=== PATIENT | female | born 1950 | race Caucasian/White ===

== ENCOUNTER 2025-02-11 13:02 | Outpatient (CLI) | payer MEDICARE, OTHER, SELFPAY ==
--- OUTSIDE RECORDS SUMMARY | 2018-08-27 23:00 | XMS_ITS | Encounter Summary ---
Author Organization [facility] Healthcare Address [address] [place] [address] Care Team Providers Care [employer] Name Role Phone Seema Ayon MD Primary Care Provider [phone] Encounter Details Date Type Department Care Team (Late st Contact Info) Description 08/28/2018 Hospital Encounter [facility] [address] [place] [address] Social History Tobacco Use Types Packs/Day Years Used Date Smoking Tobacco: Former Cigarettes 0.8 1.6 Q uit: 1986 Smokeless Tobacco: Never Comments:BALANCE ISSUES ARE A PROBLEM. I have not seen a NEUROLOGIST as of yet. I had a Oct 10 in [place] and had to cx Oct 09 appt. Now in FEBRUARY. Perhaps there is a Neurologist you recommend I can see sooner. 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 There will be no report generated by a [facility] Radiologist. Narrative [facility] - 05/12/2022 2:42 PM CDT EXAMINATION: Images For Reference Purposes Only Jm Hook MD IMG CT PROCEDURES Parvin l Result [facility] documented in this encounter Visit Diagnoses Not on filedocumented in this encounter Care Teams [employer] Teacher Relationship Specialty Start Date End Date Seema Ayon MD PCP - General 12/07/10 11/02/20 documented as of this encounter
--- NOTE | ~2025-02-11 | DEXA_ITS ---
Bone Density Report Name: AMOS LUJAN Age: 74 Sex: Female Ethnicity: White Date of : 1950 Indication: postmenopausal; screening for osteoporosis; prior fracture; Referring Provider: NATACHA, IRIS Miguel Study: Bone densitometry was performed. Exam Date: February 11, 2025 Accession number: [id number] Bone Density: Region BMD T-score Z-score Classification AP Spine(L1-L4) 1.066 0.2 2.5 Normal Femoral Neck (Left) 0.713 -1.2 0.8 Osteopenia Total Hip (Left) 0.872 -0.6 1.1 Normal Femoral Neck (Right) 0.726 -1.1 0.9 Osteopenia Total Hip (Right) 0.863 -0.6 1.1 Normal Total Hip Mean 0.867 -0.6 1.1 Normal World Health Organization criteria for BMD impression classify patients as: Normal (T-score at or above -1.0), Osteopenia (T-score between -1.0 and -2.5), or Osteoporosis (T-score at or below -2.5). 10-year Fracture Risk(1): Major Osteoporotic Fracture 16% Hip Fracture 2.3% Reported Risk Factors: [place] (), Neck BMD=0.713, BMI=27.4, previous fracture (1) FRAX(R) Version 3.08. Fracture probability calculated for an untreated patient. Fracture probability may be lower if the patient has received treatment. Clinical Information Provided by Patient: Has had a low trauma fracture Has used the following medications: Vitamin D Patient maximum height was 66.0 Menopause Age: 54 Drinks caffeinated beverages Onset of menses at age 16 Number of children 2 Impression: The patient has low bone mass, based on the Left Femoral Neck T-score. The patient has an estimated ten-year risk of hip fracture of 2.3% and an estimated ten-year risk of major fracture of 16%, based on the WHO FRAX algorithm. The patient has risk factors, including: previous fracture. Discussion: BONE DENSITY IS LOW AT ONE OR MORE SKELETAL SITES. This patient's lowest T-score is low at one or more skeletal sites. It meets the World Health Organization's (WHO) criteria for ?low bone mass? (T-score between -1.0 and -2.5). The patient's 10-year risk of fracture as calculated by FRAX is less than the threshold where pharmacological therapy is recommended by the National Osteoporosis Foundation (NOF). However, all treatment decisions require clinical judgment and consideration of individual patient factors, including patient preferences, comorbidities, previous drug use, risk factors not captured in the FRAX model (e.g., frailty, falls, vitamin D deficiency, increased bone turnover, interval significant decline in bone density) and possible under or overestimation of fracture risk by FRAX. The patient should follow a healthful lifestyle (good nutrition with adequate calcium and vitamin D, and appropriate weight-bearing exercise). Follow-Up: Consider repeating this study in 2 to 3 years to reassess this patient's status, or sooner if there is some new clinical indication. Reported by: ANAHY on 02/11/2025 1:51:00 PM. Reviewed, dictated and finalized at location A.
--- OUTSIDE RECORDS SUMMARY | 2025-02-11 13:27 | XMS_ITS | Clinical Summary ---
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 Gender Identity Not on file Sexual Orientation Not on file Plan of Treatment Health Maintenance Due Date Last Done Comments DTAP/TDAP/TD VACCINES (1 - Tdap) 1970 BREAST CANCER SCREENING 1991 COLORECTAL SCREENING 1996 Colorectal Cancer Screening 1996 FIT-DNA Q 3 years 1996 FIT/FOBT Q 1 year 1996 Flex Sig/CT Colonography Q 5 years 1996 PNEUMOCOCCAL VACCINE 50+ YEARS (1 of 1 - PCV) 03/24/19 02 ZOSTER VACCINE (1 of 2) 2001 OSTEOPOROSIS SCREENING 2016 INFLUENZA VACCINE (#1) 2024 RSV VACCINE (60+ or ) (1 - 1-dose 75+ series) 2026 Care Teams Chief Of Anesthesiology Relationship Specialty Start Date End Date Brayden Reynolds MD [address] [place] [address] PCP - General 08/09/02
--- OUTSIDE RECORDS SUMMARY | 2025-02-11 13:27 | XMS_ITS | Data Portability ---
Author Organization [place] - [facility] [employer], Main Office Address [address] [place] [address] Care Team Providers Care T Rail Turner Name Role Phone CHARLENE HOROWITZ Primary Care Provider [phone] CHARLENE HOROWITZ Referring Provider [phone] Assessment No assessment recorded. Plan of Treatment Reminders Order Date Submit Date Provider Last Modified By Organization Details Last Modified Time Details Appointments None recorded. Lab noninvasive colorectal cancer DNA + occult blood screening, QL, stool 2022 023 [facility], [address], [address], [place], [address], 3 18:33:24 Referral None recorded. Procedures None recorded. Surgeries None recorded. Imaging MAMMO, screening, digital, bilateral 2022 023 BRIAN Not available 3 12:26:00 DEXA 2022 023 [email or web address] Not available 3 12:29:53 Medication Orders OneTouch Verio test strips 2022 023 [id number], [address], [place], [address], 3 14:35:01 Synthroid 50 mcg tablet 2022 023 [id number] [facility], [address] , [place], [address], 3 14:35:02 Patient TargetsNo targets recorded. Patient Instructions Encounter Date Encounter Id Patient Instructions Last Modified By Organization Details Last Modified Time 10/10/2022 [id number] dementia rating scale-2* [email or web address] Not available 10/10/2022 15:44:04 multi-dimensiona l health assessment questionnaire* Not available 10/10/2022 15:44:09 care plan* [email or web address] Not available 09/14 15:44:00 advance directiv es: care instructions Not available 10/10/2022 14:34:55 advance care planning: care instructions Not available 10/10/2022 14:34:55 [place] Advance Directives Not available 10/10/2022 14:34:55 Personalized a lt Plan and Screening Recommendations Advance Directives - Do you have one? Yes Advance Directives - Do we have your advance directive on file in your health record? No, please bring in a copy at your earliest convenience Primary Prevention/Interven tion (prevents or decreases the chance of common diseases from occurring) Smoking Risk: Non Smoker Alcohol Misuse Screening: Negative Weight: Appropriate Physical activity: Need more exercise/physical activity minimum of 10-20 minutes of activity that causes mild breathlessness/day Nutrition: Good Fall Risk (screened today): Low Vaccines Pneumococcal: Recommended today Influenza: Your next one in the fall of this year Chronic Disease Risks Stroke: Intermediate Risk Active diagnosis, Continue current treatment plan Heart Attack: Intermediate Risk Active diagnosis, Continue current treatment plan Clogging of the Arteries: Intermediate Risk Active diagnosis, Continue current treatment plan Diabetes: High Risk Active diagnosis, Continue current treatment plan Secondary Prevention/Interven tion (detects treatable diseases before they may cause symptoms, disability, or ) Breast Cancer Screening with mammogram: Ordered Cervical/Uterine/Ov liliana Cancer Screening: Your next PAP/pelvic in: 11/2021 Osteoporosis Screening: Ordered Date Screening Last Performed: Colon Cancer Screening: Cologuard (DNA stool test) Ordered Date Screening Last Performed: Eye Disease Screening: Ordered Dementia Risk: Low Depression Screening: Negative Active diagnosis, Continue current treatment plan Not available 10/11/2022 20:39:48 Reason for Referral None Reported. Results Created Date Observation Date Name Description Value Unit Range Abnormal Flag Note LastModifiedBy Organization Detail LastModifiedTime 03/23/19 22 2021 HEMOG LOBIN A1C hemoglobin A1C 6.5 %_of_ total _HGB <5.7 high Not Available [address] [address] [place], [address], 2021 03:47:16 03/23/19 22 2021 BASIC METAB OLIC PANEL eGFR non-afr. russian 78 mL/mi n/1.7 3m2 > or = 60 normal Not Available [facility] [address] [address] [place], [address], 2021 03:47:15 03/23/1903/24/2021 BASIC METAB OLIC PANEL glucose 135 mg/dL 65-99 high Fasti ng refer ence inter stacy For someo ne witho ut known diabe caleb, a gluco se value >125 mg/dL indic ates that they may have diabe caleb and this shoul d be confi rmed with a follo w-up test. Not Available [facility] [address], [place], [address], 2021 03:47:15 03/23/19 22 2021 BASIC METAB OLIC PANEL urea nitrogen (BUN) 13 mg/dL 7-25 normal Not Available [facility] [address], [address], 2021 03:47:15 03/23/1903/24/2021 BASIC METAB OLIC PANEL creatinine 0.77 mg/dL 0.60-0 .93 normal For patie nts >49 years of age, the refer ence limit for Creat inine is appro ximat adria 13% highe r for peopl e ident ified as Afric an-Am philly n. Not Available [facility] [address] [address] [place], [address], 2021 03:47:15 03/23/19 22 2021 BASIC METAB OLIC PANEL eGFR 91 mL/mi n/1.7 3m2 > or = 60 normal Not Available [address], [address], 2021 03:47:15 03/23/19 22 2021 BASIC METAB OLIC PANEL BUN/creatini ne ratio not applic able (calc ) 6-22 Not Available [address], [address], 2021 03:47:15 03/23/19 22 2021 BASIC METAB OLIC PANEL sodium 139 mmol/ L 135-14 6 normal Not Available [address], [address], 2021 03:47:15 03/23/19 22 2021 BASIC METAB OLIC PANEL potassium 4.1 mmol/ L 3.5-5. 3 normal Not Available [address], [address], 2021 03:47:15 03/23/19 22 2021 BASIC METAB OLIC PANEL chloride 102 mmol/ L 98-110 normal Not Available [address], [address], 2021 03:47:15 03/23/19 22 2021 BASIC METAB OLIC PANEL carbon dioxide 30 mmol/ L 20-32 normal Not Available [address], [address], 2021 03:47:15 03/23/19 22 2021 BASIC METAB OLIC PANEL calcium 9.9 mg/dL 8.6-10 .4 normal Not Available [address], [address], 2021 03:47:15 03/23/19 22 2021 LIPID PANEL WITH RATIO S cholesterol, total 212 mg/dL <200 high Not Available [address] [address] [place], [address], 2021 03:47:15 03/23/19 22 2021 LIPID PANEL WITH RATIO S HDL cholesterol 51 mg/dL > or = 50 normal Not Available [facility] [address] [address] [place], [address], 2021 03:47:15 03/23/19 22 2021 LIPID PANEL WITH RATIO S triglyceride s 175 mg/dL <150 high Not Available [facility] [address], [address], 2021 03:47:15 03/23/19 22 2021 LIPID PANEL WITH RATIO S LDL-choleste rol 130 mg/dL _(yonas c) high Refer ence range : <100 Tatianna able range <100 mg/dL for prima ry preve ntion ; <70 mg/dL for patie nts with CHD or diabe tic patie nts with > or = 2 CHD risk facto rs. LDL-C is now calcu lated using the Christina n-Hop kins calcu alec n, which is a valid ated novel metho d provi ding anthony r accur acy than the Fried kaleb equat ion in the estim ation of LDL-C . Christina spears SS et al. HEBERT. 2013; 310(1 9): 2061- 2068 (http ://ed ucati on.Qu Ricarda [place] [employer] [employer]. com/f aq/FA Q164) Not Available [facility] [address] [address] [place], [address], 2021 03:47:15 03/23/19 22 2021 LIPID PANEL WITH RATIO S chol/HDLC ratio 4.2 (calc ) <5.0 normal Not Available [facility] [address] [address] [place], [address], 2021 03:47:15 03/23/19 22 2021 LIPID PANEL WITH RATIO S LDL/HDL ratio 2.5 (calc ) Below avera ge Risk: <2.34 [place] ge Risk: 2.35- 4.12 Moder ate Risk: 4.13- 5.56 High Risk: >5.57 Not Available [address] [address] [place], [address], 2021 03:47:15 03/23/19 22 2021 LIPID PANEL WITH RATIO S non HDL cholesterol 161 mg/dL _(yonas c) <130 high For patie nts with diabe caleb plus 1 major ASCVD risk facto r, treat ing to a non-H DL-C goal of <100 mg/dL (LDL- C of <70 mg/dL ) is consi dered a thera peuti c optio n. Not Available [address], [address], 2021 03:47:15 03/23/19 22 2021 TSH+F REE T4 TSH 1.80 mIU/L 0.40-4 .50 normal Not Available [address], [address], 2021 03:47:14 03/23/19 22 2021 TSH+F REE T4 T4, free 1.4 NG/dL 0.8-1. 8 normal Not Available [address], [address], 2021 03:47:14 08/03/19 22 08/04/2021 HEMOG LOBIN A1C hemoglobin A1C 6.0 %_of_ total _HGB <5.7 high For someo ne witho ut known diabe caleb, a hemog lobin A1c value betwe en 5.7% and 6.4% is consi stent with predi abete s and anni d james confi rmed with a follo w-up test. For someo ne with known diabe caleb, a value <7% indic ates that their diabe caleb is well contr olled . A1c targe ts shoul d be indiv idual ized based on durat ion of diabe caleb, age, comor bid condi tions , and other consi derat ions. This assay resul t is consi stent with an incre ased risk of diabe caleb. Curre ntly, no conse nsus exist s keven smion use of hemog lobin A1c for diagn osis of diabe caleb for child maribel. Not Available [facility] [address] [address] [place], [address], 08/04/2021 15:17:39 08/03/19 22 08/04/2021 TSH+F REE T4 TSH 0.91 mIU/L 0.40-4 .50 normal Not Available [facility] [address] [address] [place], [address], 08/04/2021 15:17:38 08/03/19 22 08/04/2021 TSH+F REE T4 T4, free 1.4 NG/dL 0.8-1. 8 normal Not Available [facility] [address] [address] [place], [address], 08/04/2021 15:17:38 08/03/19 22 08/04/2021 VITAM IN D,25- OH,TO CRISTOBAL,I A vitamin D,25-oh,tota l,ia 30 NG/mL 30-100 normal Vitam in D Statu s 25-OH Vitam in D: Defic iency : <20 ng/mL Insuf ficie ncy: 20 - 29 ng/mL Optim al: > or = 30 ng/mL For 25-OH Vitam in D testi ng on patie nts on D2-foster pplem entat ion and patie nts for whom quant itati on of D2 and D3 fract ions is requi red, the [facility] eD(TM ) 25-OH VIT D, (D2,D 3), LC/MS /MS is recom corine d: order code 23704 (abad ents >2yrs ). See Note 1 Note 1 For addit ional infor farhana saenz e refer to http: //[facility] gopal Wasserman gnost ics.c om/fa q/FAQ 199 (This link is being provi ded for infor carlos verma/ educrachael saucedo purpo ses only. ) Not Available [facility] [address] [address] [place], [address], 08/04/2021 15:17:38 08/03/19 22 08/04/2021 T3, FREE T3, free 3.4 pg/mL 2.3-4. 2 normal Not Available [facility] [address] [address] [place], [address], 08/04/2021 15:17:37 08/03/19 22 08/04/2021 INSUL IN insulin 7.9 uIU/m L normal Refer ence Range < or = 19.6 Risk: Optim al < or = 19.6 Moder ate NA High >19.6 Adult cardi ovasc ular event risk categ ory cut point s (opti mal, moder ate, high) are based on [facility] s popul ation data from 02/01 11. This insul in assay shows stron g cross -reac tivit y for some insul in analo gs (lisp ro, aspar t, and glarg ine) and much lower cross -reac tivit y with other s (dete jr, gluli sine) . Not Available [facility] [address] [address] [place], [address], 08/04/2021 15:17:36 08/03/19 22 08/04/2021 ALBUM IN, RANDO M URINE W/CRE ATINI NE creatinine, random urine tnp TEST NOT PERFO RMED Quant ity not suffi cient . Not Available [facility] [address] [address] [place], [address], 08/04/2021 15:17:35 08/03/19 22 08/04/2021 ALBUM IN, RANDO M URINE W/CRE ATINI NE albumin, urine tnp TEST NOT PERFO RMED Quant ity not suffi cient . Not Available [address], [address], 08/04/2021 15:17:35 08/03/19 22 08/04/2021 COMPR EHENS DAMIR METAB OLIC PANEL globulin 2.3 g/dL_ (calc ) 1.9-3. 7 normal Not Available [address], [address], 08/04/2021 15:17:35 08/03/19 22 08/04/2021 COMPR EHENS DAMIR METAB OLIC PANEL protein, total 6.6 g/dL 6.1-8. 1 normal Not Available [address], [address], 08/04/2021 15:17:35 08/03/19 22 08/04/2021 COMPR EHENS DAMIR METAB OLIC PANEL albumin 4.3 g/dL 3.6-5. 1 normal Not Available [address], [address], 08/04/2021 15:17:35 08/03/19 22 08/04/2021 COMPR EHENS DAMIR METAB OLIC PANEL albumin/glob ulin ratio 1.9 (calc ) 1.0-2. 5 normal Not Available [address], [address], 08/04/2021 15:17:35 08/03/19 22 08/04/2021 COMPR EHENS DAMIR METAB OLIC PANEL bilirubin, total 0.5 mg/dL 0.2-1. 2 normal Not Available [address], [address], 08/04/2021 15:17:35 08/03/19 22 08/04/2021 COMPR EHENS DAMIR METAB OLIC PANEL alkaline phosphatase 58 U/L 37-153 normal Not Available [address] [address] [place], [address], 08/04/2021 15:17:35 08/03/19 22 08/04/2021 COMPR EHENS DAMIR METAB OLIC PANEL AST 14 U/L 10-35 normal Not Available [address] [address] [place], [address], 08/04/2021 15:17:35 08/03/19 22 08/04/2021 COMPR EHENS DAMIR METAB OLIC PANEL ALT 12 U/L 6-29 normal Not Available [address] [address] [place], [address], 08/04/2021 15:17:35 08/03/19 22 08/04/2021 COMPR EHENS DAMIR METAB OLIC PANEL glucose 112 mg/dL 65-99 high Fasti ng refer ence inter stacy For someo ne witho ut known diabe caleb, a gluco se value betwe en 100 and 125 mg/dL is consi stent with predi abete s and shoul d be confi rmed with a follo w-up test. Not Available [address], [address], 08/04/2021 15:17:35 08/03/19 22 08/04/2021 COMPR EHENS DAMIR METAB OLIC PANEL urea nitrogen (BUN) 8 mg/dL 7-25 normal Not Available [address], [address], 08/04/2021 15:17:35 08/03/19 22 08/04/2021 COMPR EHENS DAMIR METAB OLIC PANEL creatinine 0.70 mg/dL 0.60-0 .93 normal For patie nts >49 years of age, the refer ence limit for Creat inine is appro ximat adria 13% highe r for peopl e ident ified as Afric an-Am philly n. Not Available [facility] [address], [address], 08/04/2021 15:17:35 08/03/19 22 08/04/2021 COMPR EHENS DAMIR METAB OLIC PANEL eGFR non-afr. russian 88 mL/mi n/1.7 3m2 > or = 60 normal Not Available [address], [address], 08/04/2021 15:17:35 08/03/19 22 08/04/2021 COMPR EHENS DAMIR METAB OLIC PANEL eGFR 102 mL/mi n/1.7 3m2 > or = 60 normal Not Available [address], [address], 08/04/2021 15:17:35 08/03/19 22 08/04/2021 COMPR EHENS DAMIR METAB OLIC PANEL chloride 104 mmol/ L 98-110 normal Not Available [address], [address], 08/04/2021 15:17:35 08/03/19 22 08/04/2021 COMPR EHENS DAMIR METAB OLIC PANEL BUN/creatini ne ratio not applic able (calc ) 6-22 Not Available [address], [address], 08/04/2021 15:17:35 08/03/19 22 08/04/2021 COMPR EHENS DAMIR METAB OLIC PANEL sodium 138 mmol/ L 135-14 6 normal Not Available [address], [address], 08/04/2021 15:17:35 08/03/19 22 08/04/2021 COMPR EHENS DAMIR METAB OLIC PANEL potassium 4.0 mmol/ L 3.5-5. 3 normal Not Available [address], [address], 08/04/2021 15:17:35 08/03/19 22 08/04/2021 COMPR EHENS DAMIR METAB OLIC PANEL carbon dioxide 29 mmol/ L 20-32 normal Not Available [address], [address], 08/04/2021 15:17:35 08/03/19 22 08/04/2021 COMPR EHENS DAMIR METAB OLIC PANEL calcium 9.4 mg/dL 8.6-10 .4 normal Not Available [address], [address], 08/04/2021 15:17:35 08/03/19 22 08/04/2021 PHOSP HATE ( PHOSP HORUS ) phosphate ( phosphorus) 4.0 mg/dL 2.1-4. 3 normal Not Available [address], [address], 08/04/2021 15:17:34 08/03/19 22 08/04/2021 PTH, INTAC T AND CALCI UM parathyroid hormone, intact 39 pg/mL 16-77 normal Inter preti ve Guide Intac t PTH Calci um ----- ----- ----- --- ----- ----- ----- -- Triny l Parat hyroi d Triny l Triny l Hypop katie yroid ism Low or Low Triny l Low Hyper parat hyroi dism Prima ry Triny l or High High Secon selena High Triny l or Low Terti uche High High Non-P katie yroid Hyper calce juan alberto Low or Low Triny l High Not Available [address], [address], 08/04/2021 15:17:32 08/03/19 22 08/04/2021 PTH, INTAC T AND CALCI UM calcium 9.4 mg/dL 8.6-10 .4 normal Not Available [address], [address], 08/04/2021 15:17:32 08/05/19 22 08/05/2021 CALCI UM, 24 HOUR URINE (W/ CREAT ININE ) calcium/crea tinine ratio 67 mg/g_ creat 30-275 normal Not Available [facility] [address] [place], [address], 08/05/2021 16:09:24 08/05/19 22 08/05/2021 CALCI UM, 24 HOUR URINE (W/ CREAT ININE ) calcium, 24 hour urine 50 mg/24 _h normal Refer ence Range 35-25 0 Low calci um diet 35-20 0 Not Available [facility] [address] [place], [address], 08/05/2021 16:09:24 08/05/19 22 08/05/2021 CALCI UM, 24 HOUR URINE (W/ CREAT ININE ) creatinine, 24 hour urine 0.76 g/24_ h 0.50-2 .15 normal Not Available [facility] [address] [place], [address], 08/05/2021 16:09:24 12/11/19 22 12/11/2021 HEMOG LOBIN A1C hemoglobin A1C 5.9 %_of_ total _HGB <5.7 high For someo ne witho ut known diabe caleb, a hemog lobin A1c value betwe en 5.7% and 6.4% is consi stent with predi abete s and shoul d be confi rmed with a follo w-up test. For someo ne with known diabe caleb, a value <7% indic ates that their diabe caleb is well contr olled . A1c targe ts shoul d be indiv idual ized based on durat ion of diabe caleb, age, comor bid condi tions , and other consi derat ions. This assay resul t is consi stent with an incre ased risk of diabe caleb. Curre ntly, no conse nsus exist s regar ding use of hemog lobin A1c for diagn osis of diabe caleb for child maribel. Not Available [address] [address] [place], [address], 12/11/2021 16:06:42 12/11/19 22 12/11/2021 TSH+F REE T4 T4, free 1.4 NG/dL 0.8-1. 8 normal Not Available [address], [address], 12/11/2021 16:06:42 12/11/19 22 12/11/2021 TSH+F REE T4 TSH 1.35 mIU/L 0.40-4 .50 normal Not Available [address], [address], 12/11/2021 16:06:42 12/11/19 22 12/11/2021 T3, FREE T3, free 3.3 pg/mL 2.3-4. 2 normal Not Available [address], [address], 12/11/2021 16:06:41 12/11/19 22 12/11/2021 ALBUM IN, RANDO M URINE W/CRE ATINI NE creatinine, random urine 33 mg/dL 20-275 normal Not Available [address], [address], 12/11/2021 16:06:41 12/11/19 22 12/11/2021 ALBUM IN, RANDO M URINE W/CRE ATINI NE albumin, urine 3.1 mg/dL see note: normal Refer ence Range : Refer ence Range Not estab lishe d Not Available [address], [address], 12/11/2021 16:06:41 12/11/19 22 12/11/2021 ALBUM IN, RANDO M URINE W/CRE ATINI NE albumin/crea tinine ratio, random urine 94 mcg/m g_cre at <30 high The ADA defin es abnor malit ies in album in excre tion as follo ws: Album inuri a Categ ory Resul t (mcg/ mg creat inine ) Triny l to Mildl y incre ased <30 Moder ately incre ased 30-29 9 Sever adria incre ased > OR = 300 The ADA recom mends that at least two of three speci mens colle cted withi n a 3-6 month perio d be abnor mal befor e consi jb g a patie nt to be withi n a diagn ostic categ ory. Not Available [facility] [address] [address] [place], [address], 12/11/2021 16:06:41 12/11/19 22 12/11/2021 COMPR EHENS DAMIR METAB OLIC PANEL glucose 104 mg/dL 65-99 high Fasti ng refer ence inter stacy For someo ne witho ut known diabe caleb, a gluco se value betwe en 100 and 125 mg/dL is consi stent with predi abete s and shoul d be confi rmed with a follo w-up test. Not Available [facility] [address] [place], [address], 12/11/2021 16:06:40 12/11/19 22 12/11/2021 COMPR EHENS DAMIR METAB OLIC PANEL urea nitrogen (BUN) 10 mg/dL 7-25 normal Not Available [facility] [address] [place], [address], 12/11/2021 16:06:40 12/11/19 22 12/11/2021 COMPR EHENS DAMIR METAB OLIC PANEL creatinine 0.72 mg/dL 0.60-1 .00 normal Not Available [facility] [address], [address], 12/11/2021 16:06:40 12/11/19 22 12/11/2021 COMPR EHENS DAMIR METAB OLIC PANEL eGFR 90 mL/mi n/1.7 3m2 > or = 60 normal The eGFR is based on the CKD-E PI 2020 equat ion. To calcu late the new eGFR from a previ ous Creat inine or Cysta tin C resul t, go to https ://yovani wells/erwin beebe s/ kdoqi /gfr% 5Fcal culat or Not Available [address] [address] [place], [address], 12/11/2021 16:06:40 12/11/19 22 12/11/2021 COMPR EHENS DAMIR METAB OLIC PANEL BUN/creatini ne ratio not applic able (calc ) 6-22 Not Available [address], [address], 12/11/2021 16:06:40 12/11/19 22 12/11/2021 COMPR EHENS DAMIR METAB OLIC PANEL sodium 138 mmol/ L 135-14 6 normal Not Available [address], [address], 12/11/2021 16:06:40 12/11/19 22 12/11/2021 COMPR EHENS DAMIR METAB OLIC PANEL potassium 3.9 mmol/ L 3.5-5. 3 normal Not Available [address] [address] [place], [address], 12/11/2021 16:06:40 12/11/19 22 12/11/2021 COMPR EHENS DAMIR METAB OLIC PANEL chloride 103 mmol/ L 98-110 normal Not Available [address] [address] [place], [address], 12/11/2021 16:06:40 12/11/19 22 12/11/2021 COMPR EHENS DAMIR METAB OLIC PANEL carbon dioxide 30 mmol/ L 20-32 normal Not Available [address] [address] [place], [address], 12/11/2021 16:06:40 12/11/19 22 12/11/2021 COMPR EHENS DAMIR METAB OLIC PANEL calcium 9.5 mg/dL 8.6-10 .4 normal Not Available [address], [address], 12/11/2021 16:06:40 12/11/19 22 12/11/2021 COMPR EHENS DAMIR METAB OLIC PANEL albumin/glob ulin ratio 1.8 (calc ) 1.0-2. 5 normal Not Available [address], [address], 12/11/2021 16:06:40 12/11/19 22 12/11/2021 COMPR EHENS DAMIR METAB OLIC PANEL protein, total 6.9 g/dL 6.1-8. 1 normal Not Available [address], [address], 12/11/2021 16:06:40 12/11/19 22 12/11/2021 COMPR EHENS DAMIR METAB OLIC PANEL albumin 4.4 g/dL 3.6-5. 1 normal Not Available [address], [address], 12/11/2021 16:06:40 12/11/19 22 12/11/2021 COMPR EHENS DAMIR METAB OLIC PANEL globulin 2.5 g/dL_ (calc ) 1.9-3. 7 normal Not Available [address], [address], 12/11/2021 16:06:40 12/11/19 22 12/11/2021 COMPR EHENS DAMIR METAB OLIC PANEL bilirubin, total 0.6 mg/dL 0.2-1. 2 normal Not Available [address], [address], 12/11/2021 16:06:40 12/11/19 22 12/11/2021 COMPR EHENS DAMIR METAB OLIC PANEL alkaline phosphatase 67 U/L 37-153 normal Not Available [facility] [address] [address], [place], [address], 12/11/2021 16:06:40 12/11/19 22 12/11/2021 COMPR EHENS DAMIR METAB OLIC PANEL AST 12 U/L 10-35 normal Not Available [facility] [address] [address], [place], [address], 12/11/2021 16:06:40 12/11/19 22 12/11/2021 COMPR EHENS DAMIR METAB OLIC PANEL ALT 10 U/L 6-29 normal Not Available [facility] [address] [place], [address], 12/11/2021 16:06:40 12/11/1912/11/2021 LIPID PANEL , STAND MISAEL LDL-choleste rol 122 mg/dL _(yonas c) high Refer ence range : <100 Tatianna able range <100 mg/dL for prima ry preve ntion ; <70 mg/dL for patie nts with CHD or diabe tic patie nts with > or = 2 CHD risk facto rs. LDL-C is now calcu lated using the Christina spears-Hop kins doris michael n, which is a valid ated novel you cruz r accur acy than the Fried kaleb equat ion in the estim ation of LDL-C . Christina spears SS et al. HEBERT. 2013; 310(1 9): 2061- 2068 (http ://ed ucati on.Qu Ricarda christian tics. com/f aq/FA Q164) Not Available [facility] [address] [address], [place], [address], 12/11/2021 16:06:40 12/11/1912/11/2021 LIPID PANEL , STAND MISAEL cholesterol, total 206 mg/dL <200 high Not Available [facility] [address] [address], [place], [address], 12/11/2021 16:06:40 12/11/19 22 12/11/2021 LIPID PANEL , STAND MISAEL HDL cholesterol 54 mg/dL > or = 50 normal Not Available [address] [address] [place], [address], 12/11/2021 16:06:40 12/11/19 22 12/11/2021 LIPID PANEL , STAND MISAEL triglyceride s 183 mg/dL <150 high Not Available [address] [place], [address], 12/11/2021 16:06:40 12/11/19 22 12/11/2021 LIPID PANEL , STAND MISAEL chol/HDLC ratio 3.8 (calc ) <5.0 normal Not Available [address] [address] [place], [address], 12/11/2021 16:06:40 12/11/1912/11/2021 LIPID PANEL , STAND MISAEL non HDL cholesterol 152 mg/dL _(yonas c) <130 high For patie nts with diabe caleb plus 1 major ASCVD risk facto r, treat ing to a non-H DL-C goal of <100 mg/dL (LDL- C of <70 mg/dL ) is lamonte cabrales optio n. Not Available [address] [address] [place], [address], 12/11/2021 16:06:40 02/23/19 23 02/24/2022 ALBUM IN, RANDO M URINE W/CRE ATINI NE creatinine, random urine 36 mg/dL 20-275 normal Not Available [address] [address] [address], [place], [address], 02/24/2022 16:00:25 02/23/19 23 02/24/2022 ALBUM IN, RANDO M URINE W/CRE ATINI NE albumin, urine 0.3 mg/dL see note: normal Refer ence Range : Refer ence Range Not estab lishe d Not Available [address] [address] [place], [address], 02/24/2022 16:00:25 02/23/19 23 02/24/2022 ALBUM IN, RANDO M URINE W/CRE ATINI NE albumin/crea tinine ratio, random urine 8 mcg/m g_cre at <30 normal The ADA defin es abnor malit ies in album in excre tion as follo ws: Album inuri a Categ ory Resul t (mcg/ mg creat inine ) Triny l to Mildl y incre ased <30 Moder ately incre ased 30-29 9 Sever adria incre ased > OR = 300 The ADA recom mends that at least two of three speci mens colle cted withi n a 3-6 month perio d be abnor mal befor e consi jb g a patie nt to be withi n a diagn ostic categ ory. Not Available [address] [place], [address], 02/24/2022 16:00:25 06/14/19 23 06/14/2022 LIPID PANEL , STAND MISAEL cholesterol, total 185 mg/dL <200 normal Not Available [address] [place], [address], 06/14/2022 04:04:50 06/14/19 23 06/14/2022 LIPID PANEL , STAND MISAEL HDL cholesterol 57 mg/dL > or = 50 normal Not Available [address] [place], [address], 06/14/2022 04:04:50 06/14/19 23 06/14/2022 LIPID PANEL , STAND MISAEL triglyceride s 113 mg/dL <150 normal Not Available [facility] [address] [place], [address], 06/14/2022 04:04:50 06/14/19 23 06/14/2022 LIPID PANEL , STAND MISAEL LDL-choleste rol 107 mg/dL _(yonas c) high Refer ence range : <100 Tatianna able range <100 mg/dL for prima ry preve ntion ; <70 mg/dL for patie nts with CHD or diabe tic patie nts with > or = 2 CHD risk facto rs. LDL-C is now calcu lated using the Christina n-Hop kins calcu alec n, which is a valid ated novel metho d provi ding anthony r accur acy than the Fried kaleb equat ion in the estim ation of LDL-C . Christina spears SS et al. HEBERT. 2013; 310(1 9): 2061- 2068 (http ://ed ucati on.Qu estDi [employer]. com/f aq/FA Q164) Not Available [facility] [address] [address] [place], [address], 06/14/2022 04:04:50 06/14/19 23 06/14/2022 LIPID PANEL , STAND MISAEL chol/HDLC ratio 3.2 (calc ) <5.0 normal Not Available [facility] [address], [address], 06/14/2022 04:04:50 06/14/19 23 06/14/2022 LIPID PANEL , STAND MISAEL non HDL cholesterol 128 mg/dL _(yonas c) <130 normal For patie nts with diabe caleb plus 1 major ASCVD risk facto r, treat ing to a non-H DL-C goal of <100 mg/dL (LDL- C of <70 mg/dL ) is consi lucy cabrales optio n. Not Available [facility] [address] [address] [place], [address], 06/14/2022 04:04:50 06/14/19 23 06/14/2022 CBC (INCL UDES DIFF/ PLT) white blood cell count 4.8 thous and/u L 3.8-10 .8 normal Not Available [facility] [address] [address] [address] , [place], [address], 06/14/2022 04:04:51 06/14/19 23 06/14/2022 CBC (INCL UDES DIFF/ PLT) red blood cell count 4.69 lacey on/uL 3.80-5 .10 normal Not Available [address], [address], 06/14/2022 04:04:51 06/14/19 23 06/14/2022 CBC (INCL UDES DIFF/ PLT) hemoglobin 13.8 g/dL 11.7-1 5.5 normal Not Available [address], [address], 06/14/2022 04:04:51 06/14/19 23 06/14/2022 CBC (INCL UDES DIFF/ PLT) hematocrit 41.7 % 35.0-4 5.0 normal Not Available [address], [address], 06/14/2022 04:04:51 06/14/19 23 06/14/2022 CBC (INCL UDES DIFF/ PLT) MCV 88.9 fL 80.0-1 00.0 normal Not Available [address], [address], 06/14/2022 04:04:51 06/14/19 23 06/14/2022 CBC (INCL UDES DIFF/ PLT) MCH 29.4 pg 27.0-3 3.0 normal Not Available [facility] [address], [address], 06/14/2022 04:04:51 06/14/1906/14/2022 CBC (INCL UDES DIFF/ PLT) MCHC 33.1 g/dL 32.0-3 6.0 normal Not Available [facility] [address], [address], 06/14/2022 04:04:51 06/14/19 23 06/14/2022 CBC (INCL UDES DIFF/ PLT) RDW 12.2 % 11.0-1 5.0 normal Not Available [facility] [address], [address], 06/14/2022 04:04:51 06/14/19 23 06/14/2022 CBC (INCL UDES DIFF/ PLT) platelet count 307 thous and/u L 140-40 0 normal Not Available [address], [address], 06/14/2022 04:04:51 06/14/19 23 06/14/2022 CBC (INCL UDES DIFF/ PLT) MPV 9.8 fL 7.5-12 .5 normal Not Available [facility] [address], [address], 06/14/2022 04:04:51 06/14/1906/14/2022 CBC (INCL UDES DIFF/ PLT) absolute neutrophils 2760 cells /uL 1500-7 800 normal Not Available [address], [address], 06/14/2022 04:04:51 06/14/19 23 06/14/2022 CBC (INCL UDES DIFF/ PLT) absolute lymphocytes 1262 cells /uL 850-39 00 normal Not Available [address], [address], 06/14/2022 04:04:51 06/14/1906/14/2022 CBC (INCL UDES DIFF/ PLT) absolute monocytes 466 cells /uL 200-95 0 normal Not Available [address], [address], 06/14/2022 04:04:51 06/14/19 23 06/14/2022 CBC (INCL UDES DIFF/ PLT) absolute eosinophils 240 cells /uL 15-500 normal Not Available [facility] [address], [address], 06/14/2022 04:04:51 06/14/19 23 06/14/2022 CBC (INCL UDES DIFF/ PLT) absolute basophils 72 cells /uL 0-200 normal Not Available [address], [address], 06/14/2022 04:04:51 06/14/19 23 06/14/2022 CBC (INCL UDES DIFF/ PLT) neutrophils 57.5 % normal Not Available [address], [address], 06/14/2022 04:04:51 06/14/19 23 06/14/2022 CBC (INCL UDES DIFF/ PLT) lymphocytes 26.3 % normal Not Available [address], [address], 06/14/2022 04:04:51 06/14/1906/14/2022 CBC (INCL UDES DIFF/ PLT) monocytes 9.7 % normal Not Available [address], [address], 06/14/2022 04:04:51 06/14/19 23 06/14/2022 CBC (INCL UDES DIFF/ PLT) eosinophils 5.0 % normal Not Available [address], [address], 06/14/2022 04:04:51 06/14/19 23 06/14/2022 CBC (INCL UDES DIFF/ PLT) basophils 1.5 % normal Not Available [address], [address], 06/14/2022 04:04:51 06/14/19 23 06/14/2022 COMPR EHENS DAMIR METAB OLIC PANEL glucose 116 mg/dL 65-99 high Fasti ng refer ence inter stacy For someo ne witho ut known diabe caleb, a gluco se value betwe en 100 and 125 mg/dL is consi stent with predi abete s and shoul d be confi rmed with a follo w-up test. Not Available [facility] [address] [place], [address], 06/14/2022 17:26:43 06/14/19 23 06/14/2022 COMPR EHENS DAMIR METAB OLIC PANEL urea nitrogen (BUN) 12 mg/dL 7-25 normal Not Available [address], [address], 06/14/2022 17:26:43 06/14/19 23 06/14/2022 COMPR EHENS DAMIR METAB OLIC PANEL creatinine 0.74 mg/dL 0.60-1 .00 normal Not Available [facility] [address], [address], 06/14/2022 17:26:43 06/14/19 23 06/14/2022 COMPR EHENS DAMIR METAB OLIC PANEL eGFR 86 mL/mi n/1.7 3m2 > or = 60 normal The eGFR is based on the CKD-E PI 2020 equat ion. To calcu late the new eGFR from a previ ous Creat inine or Cysta tin C resul t, go to https ://yovani wells/erwin pastrana/ kdoqi /gfr% 5Fcal culat or Not Available [address], [address], 06/14/2022 17:26:43 06/14/19 23 06/14/2022 COMPR EHENS DAMIR METAB OLIC PANEL BUN/creatini ne ratio NOT APPLIC ABLE (calc ) 6-22 Not Available [address], [address], 06/14/2022 17:26:43 06/14/19 23 06/14/2022 COMPR EHENS DAMIR METAB OLIC PANEL sodium 137 mmol/ L 135-14 6 normal Not Available [address], [address], 06/14/2022 17:26:43 06/14/19 23 06/14/2022 COMPR EHENS DAMIR METAB OLIC PANEL potassium 4.1 mmol/ L 3.5-5. 3 normal Not Available [address], [address], 06/14/2022 17:26:43 06/14/19 23 06/14/2022 COMPR EHENS DAMIR METAB OLIC PANEL chloride 103 mmol/ L 98-110 normal Not Available [address], [address], 06/14/2022 17:26:43 06/14/19 23 06/14/2022 COMPR EHENS DAMIR METAB OLIC PANEL carbon dioxide 27 mmol/ L 20-32 normal Not Available [address], [address], 06/14/2022 17:26:43 06/14/19 23 06/14/2022 COMPR EHENS ADMIR METAB OLIC PANEL calcium 9.4 mg/dL 8.6-10 .4 normal Not Available [address], [address], 06/14/2022 17:26:43 06/14/19 23 06/14/2022 COMPR EHENS DAMIR METAB OLIC PANEL protein, total 6.8 g/dL 6.1-8. 1 normal Not Available [address], [address], 06/14/2022 17:26:43 06/14/19 23 06/14/2022 COMPR EHENS DAMIR METAB OLIC PANEL albumin 4.2 g/dL 3.6-5. 1 normal Not Available [address], [address], 06/14/2022 17:26:43 06/14/19 23 06/14/2022 COMPR EHENS DAMIR METAB OLIC PANEL globulin 2.6 g/dL_ (calc ) 1.9-3. 7 normal Not Available [address], [address], 06/14/2022 17:26:43 06/14/19 23 06/14/2022 COMPR EHENS DAMIR METAB OLIC PANEL albumin/glob ulin ratio 1.6 (calc ) 1.0-2. 5 normal Not Available [address], [address], 06/14/2022 17:26:43 06/14/19 23 06/14/2022 COMPR EHENS DAMIR METAB OLIC PANEL bilirubin, total 0.4 mg/dL 0.2-1. 2 normal Not Available [address], [address], 06/14/2022 17:26:43 06/14/19 23 06/14/2022 COMPR EHENS DAMIR METAB OLIC PANEL alkaline phosphatase 59 U/L 37-153 normal Not Available [address], [address], 06/14/2022 17:26:43 06/14/19 23 06/14/2022 COMPR EHENS DAMIR METAB OLIC PANEL AST 14 U/L 10-35 normal Not Available [address], [address], 06/14/2022 17:26:43 06/14/19 23 06/14/2022 COMPR EHENS DAMIR METAB OLIC PANEL ALT 13 U/L 6-29 normal Not Available [address], [address], 06/14/2022 17:26:43 06/14/19 23 06/14/2022 ALBUM IN, RANDO M URINE W/CRE ATINI NE creatinine, random urine 32 mg/dL 20-275 normal Not Available [address], [address], 06/14/2022 17:26:44 06/14/19 23 06/14/2022 ALBUM IN, RANDO M URINE W/CRE ATINI NE albumin, urine 29.3 mg/dL see note: normal Refer ence Range : Refer ence Range Not estab lishe d Verif ied by repea t darren sis. Not Available [address], [address], 06/14/2022 17:26:44 06/14/19 23 06/14/2022 ALBUM IN, RANDO M URINE W/CRE ATINI NE albumin/crea tinine ratio, random urine 916 mcg/m g_cre at <30 high The ADA defin es abnor malit ies in album in excre tion as follo ws: Album inuri a Categ ory Resul t (mcg/ mg creat inine ) Triny l to Mildl y incre ased <30 Moder ately incre ased 30-29 9 Sever adria incre ased > OR = 300 The ADA recom mends that at least two of three speci mens colle cted withi n a 3-6 month perio d be abnor mal befor e consi jb g a patie nt to be withi n a diagn ostic categ ory. Not Available [address], [address], 06/14/2022 17:26:44 06/14/19 23 06/14/2022 T4, FREE T4, free 1.3 NG/dL 0.8-1. 8 normal Not Available [address], [address], 06/14/2022 17:26:44 06/14/1906/14/2022 TSH TSH 1.31 mIU/L 0.40-4 .50 normal Not Available [address], [address], 06/14/2022 17:26:45 06/14/19 23 06/14/2022 T3, FREE T3, free 3.3 pg/mL 2.3-4. 2 normal Not Available [facility] [place] [address] [place], [address], 06/14/2022 17:26:46 06/14/1906/14/2022 HEMOG LOBIN A1C hemoglobin A1C 5.9 %_of_ total _HGB <5.7 high For someo ne witho ut known diabe caleb, a hemog lobin A1c value betwe en 5.7% and 6.4% is consi stent with predi abete s and shoul d be confi rmed with a follo w-up test. For someo ne with known diabe caleb, a value <7% indic ates that their diabe caleb is well contr olled . A1c targe ts shoul d be indiv idual ized based on durat ion of diabe caleb, age, comor bid condi tions , and other consi derat ions. This assay resul t is consi stent with an incre ased risk of diabe caleb. Curre ntly, no conse nsus exist s regar ding use of hemog lobin A1c for diagn osis of diabe caleb for child maribel. Not Available [facility] [address] [address] , [place], [address], 06/14/2022 17:26:46 10/27/1910/26/2022 COLOG UARD cologuard result reportable NEGATI VE negati ve normal NEGAT DAMIR TEST RESUL T. A negat damir Colog uard resul t indic ates a low likel ihood that a color ectal cance r (CRC) or advan roge adeno ma (radha omato us polyp s with more advan roge pre-m align ant featu res) is prese nt. The chanc e that a perso n with a negat damir Colog uard test has a color ectal cance r is less than 1 in 1500 (nega tive predi ctive value >99.9 %) or has an advan roge adeno ma is less than 5.3% (nega tive predi ctive value 94.7% ). These data are based on a prosp ectiv e cross -sect ional study of 10,00 0 indiv idual s at [facility] risk for color ectal cance r who were scree chad with both Colog uard and colon oscop y. (Amy Schaefer al, N Engl J Med 2014; 370(1 4):12 86-12 97) The triny l value (refe rence range ) for this assay is negat damir. COLOG UARD RE-SC REENI NG RECOM MENDA TION: Perio dic color ectal cance r scree davey is an impor tant part of preve ntive healt hcare for asymp tomat ic indiv idual s at [facility] risk for color ectal cance r. Follo wing a negat damir Colog uard resul t, the Ameri can Cance r Socie ty and U.S. Multi -Soci ety Task Force scree davey guide lines recom mend a Colog uard re-sc reeni ng inter stacy of 3 years . Refer ences : Ameri can Cance r Socie ty Guide line for Color ectal Cance r Scree davey: https ://ww w.can cer.o rg/ca ncer/ colon -rect al-ca ncer/ detec tion- diagn osis- stagi ng/ac s-rec ommen datio ns.ht ml.; Erick DK, Azam banerjee CR, iVtor PICKARD, Color ectal Cance r Scree davey: Recom menda tions for Physi cians and Patie nts from the U.S. Multi -Soci ety Task Force on Color ectal Cance r Scree davey , Tushar lion y 2017; 112:1 016-1 030. TEST DESCR IPTIO N: [place] site algor ithmi c darren sis of stool DNA-b iomar kers with hemog lobin immun oassa y. Quant itati ve value s of indiv idual bioma rkers are not repor table and are not assoc iated with indiv idual bioma rker resul t refer ence range s. Colog uard is inten ded for color ectal cance r scree davey of adult s of eithe r sex, 45 years or older , who are at [facility] for color ectal cance r (CRC) . Colog uard has been appro magan for use by the U.S. FDA. The perfo rmanc e of Colog uard was estab lishe d in a cross secti onal study of [facility] adult s aged 50-84 . Colog uard perfo rmanc e in patie nts ages 45 to 49 years was estim ated by sub-g kimberleyp darren sis of near- age group s. Colon oscop ies perfo rmed for a posit damir resul t may find as the most clini calvin signi fican t lesio n: color ectal cance r [4.0% ], advan roge adeno ma (incl uding sessi le mikayla tab polyp s great er than or equal to 1cm diame ter) [20%] or non- advan roge adeno ma [31%] ; or no color ectal neopl efraín [45%] . These estim ates are deriv ed from a prosp ectiv e cross -sect ional scree davey study of 0 indiv idual s at [facility] for color ectal cance r who were scree chad with both Colog uard and colon oscop y. (Amy De et al, N Engl J Med 2014; 370(1 4):12 86-12 97.) Colog uard may produ ce a false negat damir or false posit damir resul t (no color ectal cance r or preca ncero us polyp prese nt at colon oscop y follo w up). A negat damir Colog uard test resul t does not guara ntee the absen ce of CRC or advan roge adeno ma (pre- cance r). The curre nt Colog uard scree davey inter stacy is every 3 years . (Amer ican Cance r Socie ty and U.S. Multi -Soci ety Task Force ). Colog uard perfo rmanc e data in a 0 patie nt pivot al study using colon oscop y as the refer ence metho d can [facility] locat ion: www.e xactl abs.c om/re sults . Addit ional descr iptio n of the Colog uard test proce ss, warni ngs and preca ution s can be found at www.keron haley.keron om. Not Available [facility] [address], [place], [address], 11/02/2022 18:33:24 12/02/19 22 12/01/2021 MAMMO , scree davey, digit al, bilat eral No observ ation record ed. [id number] [facility] [address] , [place], [address], 04/13/2022 06:10:07 04/05/19 23 04/05/2022 MRI, brain , w/wo contr ast No observ ation record ed. [id number] , [place], [address], 04/13/2022 06:10:07 12/15/19 23 12/14/2022 MAMMO , scree davey, digit al, bilat eral No observ ation record ed. [address] , [place], [address], 12/22/2022 12:36:29 Result Notes None recorded. Problems Name Problem SNOMED Code Status Onset Date Resolution Date Notes Provider Name and Address Organization Details Recorded Time Cystocele 025656857 Active Not Available [facility] 06:03:50 Female urinary stress incontinence 26877814 Active Not Available [facility] 3 06:03:50 Impaired glucose tolerance 0313259 Active 2018 Not Available [facility] 3 06:03:51 Acquired hallux rigidus 9132606 Active 2021 Not Available [facility] 3 06:03:51 Dystrophia unguium 26229357 Active 2021 Not Available [facility] 3 06:03:51 Hypothyroidis m 28533358 Active 2021 Not Available [facility] 3 06:03:50 Screening mammography Active 2021 Not Available [facility] 3 06:03:50 Mixed hyperlipidemi a 060336696 Active 2021 Not Available [facility] 3 06:03:50 Type 2 diabetes mellitus without complication 686112512 Active 2021 Not Available [facility] 3 06:03:50 Postmenopausa l state 06441885 Active 2021 Not Available [facility] 3 06:03:51 Long-term drug therapy Active 2021 Not Available [facility] 3 06:03:50 Intracranial meningioma 822839823 Active 2022 Not Available [facility] 3 06:03:50 Well controlled type 2 diabetes mellitus 554309805 Active 2022 HUBERT Wright, [facility] 3 12:21:47 Problem Notes None recorded. Procedures Surgical History Date Name Laterality Status Provider Name and Address Organization Details Recorded Time 10/11/19 23 Medicare Wellness CPT Code, subsequent completed ADRIÁN Redmond [facility] 10/10/2022 14:02:58 12/02/19 22 Date of Last Mammogram completed ADRIÁN Redmond [facility] 10/07/2022 14:22:35 12/01/19 21 Most Recent Bone Density completed Not Available [facility] 04/13/2022 05:56:57 10/04/19 20 Date of Last Colonoscopy completed Not Available [facility] 04/13/2022 05:56:56 excision of lipoma completed Not Available [facility] 04/13/2022 05:57:01 ankle manipulation completed Not Available [facility] 04/13/2022 05:57:01 Imaging Results None recorded. Procedure Notes None recorded. Medical Equipment None Reported. Allergies No known drug allergies Medications Name Sig Start Date Stop Date Status Note LastModified by Organization Details LastModified Time levothyroxi ne 25 mcg tablet active Not Available Not Available Not Available Macrobid 100 mg capsule Take 1 capsule every 12 hours by oral route. active Not Available Not Available No t Available amoxicillin 875 mg tablet TAKE 1 TABLET BY MOUTH TWICE DAILY active Not Available Not Available No t Available cephalexin 500 mg capsule active Not Available Not Available Not Available ibuprofen 200 mg tablet Take 1 tablet every day by oral route as needed. 2019 active Not Available Not Available Not Avai lable Synthroid 50 mcg tablet TAKE 1 TABLET BY MOUTH EVERY DAY IN THE MORNING active Not Available Not Available No t Available metformin ER 500 mg tablet,exte nded release 24 hr TAKE 2 TABLET BY MOUTH EVERY DAY WITH DINNER active Not Available Not Available No t Available Sudafed PE 10 mg tablet Take 1 tablet every day by oral route as needed. 2019 active Not Available Not Available Not Avai lable Claudia 1/2 tab PRN 2021 active Not Available Not Available Not Avai lable Claudia-D 24 Hour takes prn 04/09 completed Not Available Not Available Not Available OneTouch Verio test strips USE 1 STRIP EVERY DAY. E11.9 2022 active Not Available Not Available Not Avai lable OneTouch Delica Lancets 30 gauge USE DIRECTED TWICE A DAY active Not Available Not Available No t Available Afluria 8869-4158 (PF) 45 mcg (15 mcg x 3)/0.5 mL IM syringe TO BE ADMINISTE RED BY PHARMACIS T FOR IMMUNIZAT ION active Not Available Not Available No t Available OneTouch Ultra Blue Test Strip USE TO TEST BLOOD SUGAR 1 TIMES DAILY active Not Available Not Available No t Available Flucelvax Quad (PF) 60 mcg (15 mcg x 4)/0.5 mL IM syringe 08/21 completed Not Available Not Available Not Available OneTouch Ultra2 Meter USE DIRECTED TO TEST BLOOD SUGAR active Not Available Not Available No t Available Fluzone High-Dose (PF) 180 mcg/0.5 mL intramuscul ar syringe active Not Available Not Available N ot Available Fluzone High-Dose Quad (PF) 240 mcg/0.7 mL IM syringe PHARMACY ADMINISTE RED 03/24 completed Not Available Not Available Not Available FreeStyle Candi 3 Sensor device USE DIRECTED. CHANGE EVERY 14 DAYS active Not Available Not Available No t Available Vitals Date Recorded Body mass index (BMI) Body height Oxygen saturation Heart rate Respiratory rate Body temperature Body weight Systolic And Diastolic Provider Name and Address Organization Details Last Updated DateTime 3 26.3 kg/m2 170.18 cm 90 % 81 /min 16 /min 97.7 [degF] 49848.5 2 g 138/82 mm[Hg] Not Available [facility] 3 05:59:18 Date Recorded Body mass index (BMI) Body height Oxygen saturation Heart rate Body temperature Body weight Systolic And Diastolic Provider Name and Address Organization Details Last Updated DateTime 2 27.9 kg/m2 170.18 cm 98 % 76 /min 98.5 [degF] 15011.4 4 g 130/87 mm[Hg] Not Available [facility] 3 05:59:18 Date Recorded Body mass index (BMI) Body height Oxygen saturation Heart rate Respiratory rate Body temperature Body weight Systolic And Diastolic Provider Name and Address Organization Details Last Updated DateTime 2 25.7 kg/m2 170.18 cm 97 % 72 /min 16 /min 96.2 [degF] 11892.1 5 g 120/78 mm[Hg] Not Available [facility] 3 05:59:18 Date Recorded Body height Body temperature Body mass index (BMI) Body weight Respiratory rate Oxygen saturation Heart rate Systolic And Diastolic Provider Name and Address Organization Details Last Updated DateTime 3 170.18 cm 98.4 [degF] 27.6 kg/m2 30478.2 6 g 16 /min 98 % 79 /min 120/80 mm[Hg] ADRIÁN [place] [facility] 3 14:08:27 Date Recorded Body mass index (BMI) Body height Oxygen saturation Heart rate Body temperature Body weight Systolic And Diastolic Provider Name and Address Organization Details Last Updated DateTime 2 25.7 kg/m2 170.18 cm 100 % 74 /min 98.2 [degF] 32880.1 5 g 130/80 mm[Hg] Not Available [facility] 3 05:59:18 Social History Question Answer Notes LastModified by Organizat ion Details LastModified Time Tobacco Smoking Status Former Smoker quit 1986 Not Available [facility] 04/13/2022 05:54:28 Do You Have An Advance Directive? Yes [id number] Information not available 04/13/2022 Do You Wear A Helmet When Biking? Yes [id number] Information not available 04/13/2022 Are You Blind Or Do You Have Difficulty Seeing? No [id number] Information not available 04/13/2022 What Is Your Level Of Caffeine Consumption? Moderate [id number] Information not available 04/13/2022 In The 14 Days Before Symptom Onset, Have You Had Close Contact With A Laboratory-confir med COVID-19 While That Case Was Ill? No [id number] Information not available 04/13/2022 In The 14 Days Before Symptom Onset, Have You Had Close Contact With A Person Who Is Under Investigation For COVID-19 While That Person Was Ill? No [id number] Information not available 04/13/2022 Are You Deaf Or Do You Have Serious Difficulty Hearing? No [id number] Information not available 04/13/2022 What Type Of Diet Are You Following? REGULAR [id number] Information not available 04/13/2022 Have There Been Any Changes To Your Family Or Social Situation? No [id number] Information not available 04/13/2022 When Did You Quit Smoking? 16+yearssinc elastcigaret te [id number] Information not available 04/13/2022 Do You Use Insect Repellent Routinely? No [id number] Information not available 04/13/2022 Do You Have A Medical Power Of Celluloid Trimmer? Yes Son, Jojo Segovia [id number] Information not available 04/13/2022 Have You Ever Been Counseled For Unhealthy Alcohol Use? No [id number] Information not available 04/13/2022 What Is Your Relationship Status? [id number] Information not available 04/13/2022 Do You Use Your Seat Belt Or Car Seat Routinely? Yes [id number] Information not available 04/13/2022 Do You Have Smoke And Carbon Monoxide Detectors In Your Home? Yes [id number] Information not available 04/13/2022 Do You Use Sunscreen Routinely? Yes MIGRATION.[id number] 2070 Information not available 04/13/2022 Has Tobacco Cessation Counseling Been Provided? No MIGRATION.094729 9911 Information not available 04/13/2022 Have You Recently Traveled Abroad? No MIGRATION.194392 1772 Information not available 04/13/2022 Do You Have Difficulty Walking Or Climbing Stairs? No MIGRATION.062107 2474 Information not available 04/13/2022 Do You Have Any Dietary Restrictions? No MIGRATION.083603 2135 Information not available 04/13/2022 Sex: Female Functional Status Question Answer Note LastModified by Organizat ion Details LastModified Time Do you use any illicit or recreational drugs? No MIGRATION.[id number] 026 Information not available 04/13/2022 Do you or have you ever used any other forms of tobacco or nicotine? No MIGRATION.6625060 026 Information not available 04/13/2022 What is your level of alcohol consumption? None MIGRATION.5321267 026 Information not available 04/13/2022 Are you currently employed? No Information not available 10/07/2022 Do you have transportation difficulties? No MIGRATION.6521142 026 Information not available 04/13/2022 Are you able to walk independently without assistance or assistive devices? YESWOREST MIGRATION.0117476 026 Information not available 04/13/2022 Do you have difficulty doing errands alone? No MIGRATION.0782725 026 Information not available 04/13/2022 Are you able to care for yourself independently? Yes MIGRATION.6772193 026 Information not available 04/13/2022 What is your occupation? Retired MIGRATION.8147269 026 Information not available 04/13/2022 Do you have difficulty dressing, bathing, grooming, or toileting? No MIGRATION.5881192 026 Information not available 04/13/2022 What is your exercise level? Moderate MIGRATION.9695586 026 Information not available 04/13/2022 Mental Status Question Answer Note LastModified by Organizat ion Details LastModified Time Do you feel stressed (tense, restless, nervous, or anxious, or unable to sleep at night)? [id number] MIGRATION.[id number] 26 Information not available 04/13/2022 Do you have difficulty concentrating, remembering or making decisions? No MIGRATION.24290949 26 Information not available 04/13/2022 Family History Relationship Description Onset Age of this Age Resolved Age Notes LastModified by Organization Details LastModified Time Maternal Grandfather Heart disease MIGRATION.290 [id number] Not available 04/13/2022 05:57:05 Maternal Grandmother Heart disease MIGRATION.970 [id number] Not available 04/13/2022 05:57:05 Father Heart disease MIGRATION.181 [id number] Not available 04/13/2022 05:57:05 Father Pulmonary hypertension MIGRATION.374 [id number] Not available 04/13/2022 05:57:05 Mother Cerebral hemorrhage MIGRATION.814 [id number] Not available 04/13/2022 05:57:05 Mother Hypertensive disorder MIGRATION.487 [id number] Not available 04/13/2022 05:57:05 Sister Hypertensive disorder MIGRATION.480 [id number] Not available 04/13/2022 05:57:05 Medical History Condition Response EYE PROBLEMS Y ANXIETY DISORDER Y DIZZINESS Y HYPOTHYROIDISM Y SKIN PROBLEMS Y DIABETES, TYPE Y URINARY/BLADDER/KIDNEY PROBLEMS Y ENT Y BACK / NECK PROBLEMS Y HEARTBURN / REFLUX Y Gynecological History Statement/Question Response Abnormal Pap N Date of Last Mammogram 12/01/2021 Date of Last Mammogram 12/01/2021 Date of Last Colonoscopy 10/04/2019 Most Recent Bone Density 11/30/2020 Date of LMP Sexually Active? Y Menses Monthly N Date of Last Pap 11/26/2021 Current Control Method Menopause Obstetrics History GPAL:G 2 P 0 0 0 2 Type Value Living 2 Total 2 Immunizations Vaccine Type Date Status Note Provider Nam e and Address Organization Details Recorded Time Influenza, high-dose, trivalent, PF 9 completed Not Available [facility] 04/13/2022 06:09:29 influenza, unspecified formulation 0 completed Not Available [facility] 04/13/2022 06:09:29 Influenza, high-dose, quadrivalent, PF 2 completed Not Available [facility] 04/13/2022 06:09:29 zoster, unspecified formulation 2 completed Not Available [facility] 04/13/2022 06:09:29 Past Encounters Encounter ID Performer Location Encounter Start Date Encounter Closed Date Diagnosis/Indication Diagnosis SNOMED-CT Code Diagnosis ICD10 Code Diagnosis IMO Codes Diagnosis Note [id number] JOEL Jimenez [facility] [address] [place] [address] 09/24/2020 00:00:00 10/13/2020 15:24:26 [id number] JOEL Jimenez [facility] [place] [address] [place] [address] 11/03/2020 00:00:00 11/10/2020 23:37:47 [id number] [facility] [place] [address] [place] [address] 02/22/2021 00:00:00 02/22/2021 15:45:19 [id number] JOEL Jimenez [facility] [place] [address] [place] [address] 04/01/2021 00:00:00 04/11/2021 19:53:01 [id number] Dodie Love MD [facility] [place] [address] [place] [address] 04/09/2021 00:00:00 04/10/2021 09:14:23 [id number] Jose Francisco Fajardo MD [facility] [place] [address] [place] [address] 09/29/2021 00:00:00 10/10/2021 20:39:18 [id number] Dodie Love MD [facility] [place] [address] [place] [address] 12/17/2021 00:00:00 12/17/2021 13:53:32 [id number] JOEL Jimenez [facility] [place] [address] [place] [address] 03/30/2022 00:00:00 04/10/2022 22:54:52 [id number] JOEL Jimenez [facility] [place] [address] [place] [address] 10/10/2022 14:02:39 10/10/2022 14:40:25 Adult health examination 326720073 Z00.00 maalvaro completed Screening for disorder 629114211 Z13.9 Screening mammography 24 238827 Z12.31 mammogram due in Nov. Postmenopausal state 764 31290 Z78.0 Dexa scan due in Nov Hypothyroidism 81783748 E03.9 refill thyroid supplement . Mixed hyperlipidemia 267 279425 E78.2 dietary managed. Type 2 elver betes mellitus without complication 805475367 E11.9 stable at 5.9% a1c. Screening for malignant neoplasm of colon 736283618 Z12.11 repeat cologuard due Health Concerns Section Related Observation LastModified by Organization Detai ls LastModified Time None Recorded Concern Status LastModified by Organization Details LastModified Time None Recorded Advance Directives Directive Y: Payers Insurance Date Sequence Insurance Name Policy Number Policy Vasquez Covered Member ID Vasquez Member ID Guarantor Name 10/06/2022 1 [place] Samanta James [id number] Samanta James 04/13/2022 2 Arden Reed (MEDICARE SUPPLEMENT) PLAN G Samanta James [id number] Samanta James Notes Date Note Type Note Provider Name and Address Organization Details Recorded Time 10/11/19 23 text/htm l HyperlipidemiaReported by PatientHPIFor duration, patient reportschronic. For compliance, patient reportsdoes not exercisebut reportscompliantandcompliant with diet. For risk factors, patient reportshypertension. For control, patient reportsusually well controlled. For complications, patient reportsno coronary artery disease,no peripheral artery disease, andno cardiovascular disease. HypothyroidismReported by PatientHPIFor context/risk, patient reportshistory of hypothyroidismandfemale genderbut reportsnormal thyroid levels,no history of head or neck radiation during childhood,no history of thyroid disease,no history of hyperthyroidism, andno excess iron exposure. For exercise, patient reportsno exercise. For quality, patient reportsnot changing. For duration, patient reportsconstant. For onset/timing, patient reportsstill present. For modifying factors, patient reportsmedication. For associated symptoms, patient reportsno cold intolerance,no heat intolerance,no weight loss,no weight gain,no double vision,no dry eyes,no hoarseness,no difficulty swallowing,no neck masses,no deepening of the voice,no fast heart rate,no increased blood pressure,no palpitations,no chest pain,no chest tightess or pressure,no constipation,no diarrhea,no vomiting,no decreased appetite,no loose stools,no irregular menstrual periods,no excessive sweating,no joint pain,no numbness,no tingling of the hands or feet,no dry skin,no tremor,no nervousness,no anxiety,no depression,no fatigue,no sleep difficulties,no skin changes, andno hair changes. DiabetesReported by PatientHPIFor compliance, patient reportshas not had dietitian visit in last year,does not wear a medic alert bracelet or necklace, anddoes not keep rapid-acting carbohydrate in carbut reportscompliant with medications,compliant with follow-up visits,compliant with diet,compliant with home glucose monitoring, andhad eye doctor visit in last year. For context, patient reportsnot taking aspirin dailybut reportsnormal range of home blood sugars (in the low 100s),seeing eye doctor regularly, andchecking feet regularly. For duration, patient reportschronic. For control, patient reportsusually well controlled. For self care, patient reportsmonitoring glucose 3 times per day. For associated symptoms, patient reportsno weight gain,no weight loss,no dizziness,no sweats,no headaches,no confusion,no increased thirst,no increased appetite,no increased urination,no blurred vision,no numbness of feet,no calluses on feet,no coronary artery disease,no kidney disease,no peripheral vascular disease,no diabetic retinopathy, andno diabetic neuropathy. JOEL Jimenez [address] [facility], [facility] [address], [place], [address], [email or web address] [place] 10/11/2022 20:40:16 OBGyn Episode No OBEpisode recorded.
--- OUTSIDE RECORDS SUMMARY | 2025-02-11 13:27 | XMS_ITS | Encounter Summary ---
Author Organization [id number] Address 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
--- OUTSIDE RECORDS SUMMARY | 2025-02-11 13:27 | XMS_ITS | Encounter Summary ---
Author Organization [facility] Address 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
--- OUTSIDE RECORDS SUMMARY | 2025-02-11 13:27 | XMS_ITS | Encounter Summary ---
Author Organization [employer] Address 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
--- OUTSIDE RECORDS SUMMARY | 2025-02-11 13:27 | XMS_ITS | Encounter Summary ---
Author Organization [facility] Address [address] [place] [address] Care Team Providers Care Optics Manufacturing Technician Name Role Phone Brayden Reynolds MD Primary Care Provider [phone] Encounter Details Date Type Department Care Team (Late st Contact Info) Description 08/09/2002 Outpatient Historical HIS [facility] Brayden Austin MD [address] [place] [address] FAMILY HX-DIABETES MELLITUS (Primary Dx) Social History Tobacco Use Types Packs/Day Years Used Date Smoking Tobacco: Never Assessed Comments Unknown Sex and Gender Information Value Date Recorded Sex Assigned at Not on file 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
--- OUTSIDE RECORDS SUMMARY | 2025-02-11 13:27 | XMS_ITS | Clinical Summary ---
Author Organization [facility] Address [address] [place] [address] Care Team Providers Care Microbiology Supervisor Name Role Phone Nela Levy MD Unavailable Debi Torres NP Primary Care Provider [phone] Allergies Active Allergy Reactions Criticality Noted Date Comments Erythromycin Nausea only Low 08/26/2016 Latex Rash Medium 11/09/2020 Uojrorzx-Gugdekmnsu-Jcanzfsj n Rash Medium 08/26/2016 Sertraline Shortness of breath,Nausea only High 10/17/2023 Medications blood-glucose meter [facility] OneTouch Ultra2 Meter USE DIRECTED TO TEST BLOOD SUGAR Active ibuprofen (IBU-200) 200 mg tab/cap Active fexofenadine (Claudia Allergy) 180 mg tablet Active acetaminophen (Tylenol Extra Strength) 500 mg tablet 1 tablet (500 mg total) every 6 (six) hours as needed Active OneTouch Verio test strips stripIndicatio ns:Type 2 diabetes mellitus without complication, without long-term current use of insulin (HCC) USE TO TEST BLOOD SUGAR ONCE DAILY 100 each 5 Active OneTouch Verio test strips stripIndicatio ns:Type 2 diabetes mellitus without complication, without long-term current use of insulin (HCC) USE STRIP TO CHECK GLUCOSE ONCE DAILY 100 each 5 025 Discontinued Active Problems Problem Noted Date Diagnosed Date Elevated blood-pressure read ing, without diagnosis of hypertension 09/19/2023 Assessment & Plan (09/19/2023 3:02 PM CDT): Has only had 1 reading today with mildly elevated blood pressure readings. We will continue to monitor. Balance disorder 09/19/2023 Assessment & Plan (09/19/2023 3:05 PM CDT): Has had thorough workup without diagnosis. She had started physical therapy but had to stopped due to other issues going on at the time. We discussed restarting physical therapy and patient is interested. Referral placed Medicare annual wellness visit, subsequent 08/21 Assessment & Plan (08/22/2023 8:46 AM CDT): A yearly Medicare Annual Wellness Visit has been performed today. Samanta James is up to date on screening tests. She is in need of None- no screening indicated at this time- these have been ordered. She is up to date on needed preventative vaccinations. He is getting his covid-19 vaccination after he leaves here this morning. Low bone mass 08/22/2023 Cheek mass 03/13/2023 Meningioma 09/13/2022 Intracranial meningioma 03/29/2022 Type 2 diabetes mellitus without complication Assessment & Plan (09/19/2023 3:04 PM CDT): Stable. Currently managed by endocrinology. Her A1cs have been well within goal without medications. Continue healthy eating plan. Assessment & Plan (08/22/2023 8:35 AM CDT): Lab Results Component Value Date HGBA1C 6.0 06/22/2023 HGBA1C 6.0 (H) 02/02/2023 Lab Results Component Value Date MICROALBUR 13.2 02/02/2023 CREATININE 0.8 01/16/2023 At goal at this time Continue diet and exercise Discussed at exercise and diet at length Impaired glucose tolerance 09/12/2018 Multiple benign nevi of uppe r extremity, lower extremity, and trunk 09/25/2016 Vitamin D deficiency 06/29/2013 Overview (05/20/2016): Vitamin D deficiency Menopausal syndrome 06/29/2013 Overview (05/20/2016): Menopause syndrome Chronic rhinitis 06/29/2013 Overview (05/20/2016): Chronic rhinitis Stress incontinence 01/25/2012 Assessment & Plan (09/19/2023 3:06 PM CDT): Wears a pessary. Managed by Urogynecology at [facility] Uterovaginal prolapse 10/03/2007 Hyperlipidemia Assessment & Plan (09/19/2023 3:04 PM CDT): Last lipid panel was January of 2023. She is going to have it rechecked sometime between and March for endocrinology again. She has talked to them about starting a statin but she is hesitant to start medication at this time. Assessment & Plan (08/22/2023 8:24 AM CDT): Lab Results Component Value Date CHOL 209 (H) 02/02/2023 Lab Results Component Value Date HDL 56 02/02/2023 Lab Results Component Value Date LDL 125 (H) 02/02/2023 SCRLDL 137 (A) 09/19/2020 Lab Results Component Value Date TRIG 163 (H) 02/02/2023 No results found for: POCCHDLR No results found for: POCNONHDL No results found for: POCCHLPL Stable at this time The 10-year ASCVD risk score (Shima SCHWARTZ, et al., 2019) is: 16% Values used to calculate the score: Age: 73 years Sex: Female Is Non- : No Diabetic: Yes Tobacco smoker: No Systolic Blood Pressure: 108 mmHg Is BP treated: No HDL Cholesterol: 56 mg/dL Total Cholesterol: 209 mg/dL Elevated ascvd risk - not at goal Recommend starting mod intensity statin Acquired hypothyroidism Assessment & Plan (09/19/2023 3:04 PM CDT): Euthyroid. Followed by endocrinology. Assessment & Plan (08/22/2023 8:20 AM CDT): Lab Results Component Value Date TSH 4.33 06/14/2023 Stable at thsi time Following with endo Euthyroid Will defer med changes to endo Seasonal allergies Assessment & Plan (09/19/2023 3:02 PM CDT): Continue Claudia. Add Flonase 2 sprays each nostril daily. Resolved Problems Problem Noted Date Diagnosed Date Resolved Date Recurrent major depression 09/19/2023 0 04/17/2024 Assessment & Plan (09/19/2023 3:03 PM CDT): Admits to significant stress that she believes is affecting her health. She would like to trial a low-dose antidepressant. Discussed starting a medication and pt is agreeable. Will start sertraline . Discussed starting dose and titration to full dose, possible SE and time frame for expected results. Call if any suicidal thoughts or questions concerning SE. Do not abruptly stop medication without calling office. Follow up in 3-4 weeks for recheck and continuation of medications. Acquired hallux rigidus 02/22/2021 07/0 10/2023 Dystrophia unguium 02/22/2021 Other chest pain 11/09/2020 09/19/2023 Other viral warts 02/23/2019 09/19/2023 Other seborrheic keratosis 09/25/2016 0 09/19/2023 Solar lentigo 09/25/2016 09/19/2023 Adjustment disorder with depressed mood 06/29/2013 09/19/2023 Overview (05/19/2016): Adjustment disorder with depressed mood Retention of urine 06/29/2013 5 Overview (05/19/2016): Urinary retention Depression 06/29/2013 08/22/2023 Overview (05/19/2016): Depression Subjective tinnitus 06/29/2013 09/19/19 24 Overview (05/20/2016): Tinnitus, subjective Abnormal EKG 08/22/2023 Encounters Date Type Department Care Team Description 01/01/2025 Results Follow-Up [facility] at [address] [phone] Debi Torres NP Screening Mammogram Bilateral W Nasir 12/30/2024 1:55 PM FINANCIAL SERVICES REP - 12/30/2024 11:59 PM FINANCIAL SERVICES REP Hospital Encounter [address] [address] Breast cancer screening by mammogram Discharge Disposition: Discharge to home or self care 12/26/2024 Orders Only [facility] at [address] [phone] Debi Torres NP Type 2 diabetes mellitus without complication, without long-term current use of insulin (HCC) (Primary Dx); Hyperlipidemia associated with type 2 diabetes mellitus (HCC) 11/25/2024 9:35 AM CDT Lab [address] [address] Type 2 diabetes mellitus without complication, without long-term current use of insulin (HCC); Mixed hyperlipidemia 11/25/2024 Results Follow-Up [facility] at [address] [id number] Dodie Arvizu NP Hemoglobin A1c, Comprehensive metabolic panel, eGFR 11/13/2024 Orders Only [facility] at [address] [phone] Debi Torres NP Breast cancer screening by mammogram (Primary Dx) from Last 3 Months Immunizations Immunization Administration Dates Next Due Influenza, Quad, Adjuvantate d, Intramuscular 11/21/2020 Influenza, Quadrivalent, Hig h Dose, Preservative Free, Intrr 11/05/2022,11/26/2021,11/08/2019,11/03 Influenza, Quadrivalent, Spl it, Preservative Free, Intramuscular 12/05/2015 Influenza, Trivalent, High D ose, Split, Preservative Free, Intramuscular 11/03/2018 Influenza, Trivalent, IM (MDV) 03/02/2013,2011 Influenza, Trivalent, Preser vative Free, Intramuscular 02/24/2015 Influenza, Unspecified 11/08/2019,11/22/2018,02/2017 Pneumococcal Conjugate PCV 13 10/20/2010 Pneumococcal Conjugate Pcv20 09/11/2021 RSV Vaccine, Pref, Recombina nt, Subunit, Adjuvanted, PF, IM (Arexvy) 02/20/2023 Tdap 02/13/2009 ZOSTER Recombinant 12/24/2021,09/12/2021 Zoster, unspecified 09/17/2021 Surgical History Surgery Date Site/Laterality Comments FRACTURE SURGERY 1968 RIGHT tibula br oken. Ankle and knee dislocated. left leg COLONOSCOPY 10+ years. last 3 ti mes Cologard. All tests good. COSMETIC SURGERY Told I had angiolipo ma removed L side face 1967 age 15. I was told in 2022 I have a VASCULAR MALFORMATRION SLOW FLOW left cheek. Inoperable. Scleral therapy an option possibly one day. BRAIN SURGERY GAMMA KNIFE Meningio ma 10/19/22 left parietal lobe area . ON 11/06 had MRI and all clear/normal. Medical History Medical History Date Comments Atypical chest pain Depression *2024 found a therap ist who works exclusively with [employer] relationships and over years when stress was high Acne Hyperlipidemia Thyroid disease ALL TESTS NORMAL las t 18 months. NO MEDICATON -labs-03/15/24 Dr Anitra Mendez Acid indigestion Anxiety intermittent over years. Type 2 diabetes mellitus pre first menti oned about 10+ years ago. Adjustment disorder with depressed mood 06/29/2013 Adjustment disorder with depressed mood GERD (gastroesophageal reflu x disease) 2019 *2024 can have trouble swallowing certain foods like bread more acid Headache intermittent. stress . allergies. etc. 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 I had new dexo 12/14/22 and looked good Heart disease 2020 Chest pain. 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 Allergies. Tinnitus first aware around 2005 HL (hearing loss) over last 5 years or so. Tinnitus. Chronic kidney disease No.Checked albumi n creatinine ratio again-labs- 03/15/24 and is OK. Dental disease crowns. extraction A ug 2022 no implant by choice. Vitamin D deficiency I was tested about 2004 prescribed liquid dose Arthritis big toes, hands, nec k, knees, orher joints Family History Medical History Relation Name Comments Alcohol abuse Father Pulmonary Hypertension Heart attack Father Pulmonary Hypertension Hypertension Father Pulmonary Hypertension Alcohol abuse Mother age 46 Hypertension Mother age 46 Migraines Mother age 46 Stroke Mother age 46 Relation Name Status Comments Father Pulmonary Hypertension (Age 54) Mother age 46 (Age 46) Social History Tobacco Use Types Packs/Day Years Used Date Smoking Tobacco: Former Cigarettes 0.8 1.6 Q uit: 1986 Smokeless Tobacco: Never Tobacco Cessation:Counseling Given: Not Answered Comments:BALANCE ISSUES ARE A PROBLEM. I have not seen a NEUROLOGIST as of yet. I had a Oct 10 in [place] and had to cx Oct 09 appt. [...] on file Legal Sex Female 1:44 AM FINANCIAL SERVICES REP Gender Identity Female 04/11/2023 11:41 AM FINANCIAL SERVICES REP Sexual Orientation Not on file Obstetrics History Para Term AB IAB SAB Ectopic Multiple Livin g Live Births 2 2 Date Outcome GA Total Labor Labor/2nd/3rd Weight Sex Type Anes PTL Radha A1 A5 Name Clin Last Filed Vital Signs Vital Sign Reading Time Taken Comments Blood Pressure 138/88 10/21/2024 11:33 AM CDT Pulse 74 10/21/2024 11:33 AM CDT Temperature 36.6 C (97.8 F) 10/21/2024 11:33 AM CDT Respiratory Rate 18 10/21/2024 11:3 3 AM CDT Oxygen Saturation 99% 10/21/2024 11: 33 AM CDT Inhaled Oxygen Concentration - - Weight 78.8 kg (173 lb 12.8 oz) 11/06/2024 9:22 AM CDT Height 167.6 cm (5' 6) 11/06/2024 9:22 AM CDT Body Mass Index 28.05 11/06/2024 9:22 AM CDT Plan of Treatment Health Maintenance Due Date Last Done Comments Colon Cancer Screening-Colonoscopy 1950 Hepatitis B Screening 1969 DTaP/Tdap/Td Vaccine (2 - Td or Tdap) 02/13/2019 02/13/2009 Covid-19 Vaccine (7 - 2024-2 6 season) 2024 11/05/2022, 12/30/2021, 07/09/2021, Additional history exists Influenza Vaccine (#1) 2024 , 11/26/2021, 11/21/2020, Additional history exists Osteoporosis Screening-Bone Density Scan 12/14/2024 12/14/2022 Albumin Creatinine Ratio, Urine 03/15/2025 , 02/02/2023 Lipid Panel 03/15/2025 03/15/2024, 01/14, 09/19/2020 Foot Exam 04/17/2025 04/17/2024 Dilated Eye Exam 05/03/2025 05/03/2024, 05/03/2024 Hemoglobin A1C 05/26/2025 11/25/2024, 06/2024, 06/22/2023, Additional history exists Depression Screening 10/21/2025 10/21/2024, 09/19/2023, 09/19/2023, Additional history exists Fall Risk Assessment 10/21/2025 10/21/2024, 09/19/2023, 08/22/2023, Additional history exists Well Visit 65+ 10/21/2025 10/21/2024, 08/22/2023 eGFR 11/25/2025 11/25/2024, 09/19/2023 Breast Cancer Screening-Mammogram 12/30/2025 12/30/2024, 09/11/2023, 09/11/2023 Pneumococcal vaccine 65+ Completed 09/11/2021, 0 08/2010 Zoster Vaccine Completed 12/24/2021, 06/2021, 09/12/2021 Hepatitis C Screening Completed 09/19/2023 Procedures Procedure Name Priority Date/Time Associated Diagnosis Comments SCREENING MAMMOGRAM BILATERAL W NASIR Schedule Routine, Read Routine (OP Routine) 12/30/2024 2:14 PM FINANCIAL SERVICES REP Breast cancer screening by mammogram EGFR Routine 11/25/2024 9:38 AM CDT Mixed hyperlipidemia COMPREHENSIVE METABOLIC PANEL Routine 11/25/2024 9:38 AM CDT Mixed hyperlipidemia HEMOGLOBIN A1C Routine 11/25/2024 9:38 AM CDT Type 2 diabetes mellitus without complication, without long-term current use of insulin (HCC) DIABETIC EYE EXAM Routine 05/03/2024 10:44 AM CDT ALBUMIN CREATININE RATIO, URINE Routine 03/15/2024 9:21 AM FINANCIAL SERVICES REP Proteinuria, unspecified type LIPID PANEL Routine 03/15/2024 8:13 AM FINANCIAL SERVICES REP Dyslipidemia HEPATITIS C ANTIBODY Routine 09/19/2023 2:47 PM CDT Encounter for hepatitis C screening test for low risk patient DEXA AXIAL SKELETON BONE DENSITY 1 OR MORE SITES Schedule Routine, Read Routine (OP Routine) 12/14/2022 1:42 PM CDT from Last 3 Months or Most Recently Relevant to Health Maintenance Results * Screening Mammogram Bilateral W Nasir (12/30/2024 2:14 PM FINANCIAL SERVICES REP) Anatomical Region Laterality Modality Breast Bilateral Mammography Impressions 12/31/2024 3:00 PM FINANCIAL SERVICES REP Bilateral No evidence of malignancy in either breast. OVERALL BI-RADS FINAL ASSESSMENT: 1 - Negative RECOMMENDATION: Recommend bilateral annual screening mammography. Narrative 12/31/2024 3:00 PM FINANCIAL SERVICES REP EXAMINATION: Screening Mammogram Bilateral W Nasir: 12/30/2024 COMPARISON: Relevant prior studies available at the time of interpretation were reviewed, including the most recent mammogram on: 12/14/2022. TECHNIQUE: Mammography was performed with 2D and 3D digital breast tomosynthesis (DBT) images. CAD was utilized. BREAST PARENCHYMAL COMPOSITION: There are scattered areas of fibroglandular density. FINDINGS: Bilateral There is no suspicious mass, calcification, or architectural distortion in either breast. Debi Torres NP IMG MAMMO PROCEDURES Final Re sult * eGFR (11/25/2024 9:38 AM CDT) eGFR >90 >=60 mL/min/1. 73 m2 Comment: Interpretive Data Reference Interval Normal >/= 90 mL/min/1.73m2 Mildly decreased* 60 - 89 mL/min/1.73m2 Mildly to moderately decreased 45 - 59 mL/min/1.73m2 Moderately to severely decreased 30 - 44 mL/min/1.73m2 Severely decreased 15 - 29 mL/min/1.73m2 Kidney Failure < 15 mL/min/1.73m2 *Relative to young adult level Estimated glomerular filtration rate is determined by the 2020 CKD-EPI equation recommended by the National Kidney Foundation (A Unifying Approach to GFR Estimation: Recommendations of the NKF-ASK Task Force on Reassessing the Inclusion of Race in Diagnosing Kidney Disease, JASN 2020). The CKD-EPI equation should not be used for patients with unstable renal function and has not been validated in children and those over 70. Current interpretive data was last reviewed 2020. Blood 11/25/2024 9:38 AM CDT 11/25/2024 10:52 AM CDT Debi Torres NP LAB BLOOD ORDERABLES Final Re sult [facility] [address] [facility] [place] [address] * (ABNORMAL) Hemoglobin A1c (11/25/2024 9:38 AM CDT) Hgb A1C 6.9(H) 4.0 - 5.6 % Estimated Average Glucose 151 mg/dL [facility] Comment: The ADA recommends reporting an estimated Average Glucose (eAG) with all Hemoglobin A1c results using the equation derived from a study of 507 normal and diabetic adults. Minority populations were underrepresented and children were not included. (Diabetes Care 31:4136-9655, 2007). The eAG is not equivalent to a fasting glucose. Blood 11/25/2024 9:38 AM CDT 11/25/2024 10:52 AM CDT Debi Torres NP LAB BLOOD ORDERABLES Final Re sult [facility] [address] [facility] [place] [address] * Comprehensive metabolic panel (11/25/2024 9:38 AM CDT) Sodium 137 135 - 145 mmol/L Potassium, pl 4.3 3.3 - 4.9 mmol/L [facility] Chloride 102 97 - 110 mmol/L [facility] CO2 28 22 - 32 mmol/L [facility] Anion gap 7 2 - 15 mmol/L [facility] BUN 20 6 - 25 mg/dL [facility] Creatinine 0.70 0.60 - 1.10 mg/dL [facility] Glucose 181 70 - 199 mg/dL [facility] Comment: Interpretive Data Fasting glucose >/= 126 mg/dl is diagnostic for diabetes. Fasting is defined as no caloric intake for at least 8 hours. Fasting glucose between 100 mg/dl to 125 mg/dl is diagnostic of prediabetes. In a patient with classic symptoms of hyperglycemia or hyperglycemic crisis, a random glucose >/= 200 mg/dl is diagnostic for diabetes. In the absence of unequivocal hyperglycemia, results should be confirmed by repeat testing. The classification and Diagnosis of Diabetes Diabetes Care 2021; 46: S19-S40. Current interpretive data was last revised 2022. Calcium 9.8 8.5 - 10.3 mg/dL [facility] Bilirubin, total 0.4 0.1 - 1.2 mg/dL [facility] Protein, pl 7.3 6.5 - 8.5 g/dL [facility] Albumin 4.3 3.5 - 5.0 g/dL [facility] Alk phos 64 40 - 130 Units/L [facility] ALT 12 7 - 45 Units/L [facility] AST 18 10 - 45 Units/L [facility] Blood 11/25/2024 9:38 AM CDT 11/25/2024 10:52 AM CDT Debi Torres NP LAB BLOOD ORDERABLES Final Re sult [facility] [address] [facility] [place] [address] * Diabetic Eye Exam (05/03/2024 10:44 AM CDT) Historical Provider HEALTH MAINTENANCE Final Result * Albumin Creatinine Ratio, Urine (03/15/2024 9:21 AM FINANCIAL SERVICES REP) Creatinine, ur 36 20 - 275 mg/dL [facility] Microalbumin, ur 0.2 See Note: mg/dL [facility] Comment: Reference Range: Reference Range Not established Microalbumin/creat ratio 6 <30 mg/g creat [facility] Comment: The ADA defines abnormalities in albumin excretion as follows: Albuminuria Category Result (mg/g creatinine) Normal to Mildly increased <30 Moderately increased 30-299 Severely increased > OR = 300 The ADA recommends that at least two of three specimens collected within a 3-6 month period be abnormal before considering a patient to be within a diagnostic category. Urine 03/15/2024 9:21 AM FINANCIAL SERVICES REP 03/15/2024 9:22 AM FINANCIAL SERVICES REP Narrative [facility] - 03/16/2024 2:41 AM FINANCIAL SERVICES REP SPLIT 03/15/2024 FROM [id number] Dena Ayoub MD LAB URINE ORDERABLES Final Resul t [facility] [address] [id number] * (ABNORMAL) Lipid panel (03/15/2024 8:13 AM FINANCIAL SERVICES REP) Cholesterol 188 <200 mg/dL [facility] HDL 54 > OR = 50 mg/dL [facility] Triglycerides 95 <150 mg/dL [facility] LDL 114(H) mg/dL (calc) [facility] Comment: Reference range: <100 Desirable range <100 mg/dL for primary prevention; <70 mg/dL for patients with CHD or diabetic patients with > or = 2 CHD risk factors. LDL-C is now calculated using the Estephania calculation, which is a validated novel method providing better accuracy than the Friedewald equation in the estimation of LDL-C. Hugo SS et al. HEBERT. 2013;310(19): 8280-2440 (http://education.[employer]/faq/RTA397) Chol/HDL ratio 3.5 <5.0 (calc) [facility] Non-HDL, (LDL+VLDL) 134(H) <130 mg/dL (calc) [facility] Comment: For patients with diabetes plus 1 major ASCVD risk factor, treating to a non-HDL-C goal of <100 mg/dL (LDL-C of <70 mg/dL) is considered a therapeutic option. Blood 03/15/2024 8:13 AM FINANCIAL SERVICES REP 03/15/2024 8:13 AM FINANCIAL SERVICES REP Narrative [facility] - 03/16/2024 2:45 AM FINANCIAL SERVICES REP FASTING:YES COLLECTION KIT GIVEN TO PATIENT. PATIENT ADVISED TO RETURN. FASTING: YES Dena Ayoub MD LAB BLOOD ORDERABLES Final Resul t [facility] [address] [place] [address] * Hepatitis C antibody Blood (09/19/2023 2:47 PM CDT) Hep C Ab Nonreactive Nonreactive Comment: Interpretive Data Nonreactive: Antibodies to HCV not detected. Does NOT exclude the possibility of recent exposure to HCV. Equivocal: Equivocal for HCV antibodies. Supplemental molecular testing will be automatically performed to determine infection status in accordance with current CDC screening recommendations. Reactive: Positive for HCV antibodies. This may represent current or past HCV infection. Supplemental molecular testing will be automatically performed to determine current infection status in accordance with current CDC screening recommendations. Interpretive data was last revised on 2019. Blood 09/19/2023 2:47 PM CDT 09/19/2023 7:39 PM CDT Debi Torres NP LAB MICROBIOLOGY - GENERAL OR DERABLES Final Result [facility] [address] Department [place] [address] * Dexa Axial Skeleton Bone Density 1 or 2 Site (12/14/2022 1:42 PM CDT) Anatomical Region Laterality Modality Body N/A Radiographic Courtney ging Historical Provider MD [facility] DXA PROCEDURES Final Result from Last 3 Months or Most Recently Relevant to Health Maintenance Insurance [place] [address] MEDICARE [facility] [place] MEDICARE [facility] [facility] [place] Care Teams Microbiology Supervisor Relationship Specialty Start Date End Date Debi Torres NP [address] [place] [address] PCP - General Family Medicine 07/25/24 Nela Levy MD [address] [facility] [address] [place] [address] Radiation Oncologist Radiation Oncology 05/10/23
--- OUTSIDE RECORDS SUMMARY | 2025-02-11 13:27 | XMS_ITS | Encounter Summary ---
Author Organization [employer] Address 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
--- OUTSIDE RECORDS SUMMARY | 2025-02-11 13:27 | XMS_ITS | Encounter Summary ---
Author Organization [employer] Address [address] [place] [address] Care Team Providers Care Adding Machine Operator Name Role Phone Brayden Reynolds MD Primary Care Provider [phone] Encounter Details Date Type Department Care Team (Late st Contact Info) Description 07/22/2002 Outpatient Historical [facility] Brayden Reynolds MD [address] [place] [address] Social History Tobacco Use Types Packs/Day Years Used Date Smoking Tobacco: Never Assessed Comments Unknown Sex and Gender Information Value Date Recorded Sex Assigned at Not on file Legal Sex Female 4:20 AM [employer] Gender Identity Not on file Sexual Orientation Not on file documented as of this encounter Plan of Treatment Not on file documented as of this encounter Visit Diagnoses Not on filedocumented in this encounter Care Teams Adding Machine Operator Relationship Specialty Start Date End Date Brayden Reynolds MD [address] [place] [address] PCP - General 08/09/02 documented as of this encounter
--- OUTSIDE RECORDS SUMMARY | 2025-02-11 13:27 | XMS_ITS | Encounter Summary ---
Author Organization [facility] Healthcare Address [address] [place] [address] Care Team Providers Care Tilt Wall Supervisor Name Role Phone Nela Levy MD Unavailable Debi Torres NP Primary Care Provider [phone] Encounter Details Date Type Department Care Team (Late st Contact Info) Description 01/01/2025 Results Follow-Up [facility] Primary Care at [address] [place] [address] Debi Torres NP [address] [place] [address] [address] [place] [address] Screening Mammogram Bilateral W Nasir Social History Tobacco Use Types Packs/Day Years Used Date Smoking Tobacco: Former Cigarettes 0.8 1.6 Q uit: 1986 Smokeless Tobacco: Never Comments:BALANCE ISSUES ARE A PROBLEM. I have not seen a NEUROLOGIST as of yet. I had a Oct 10 in [place] and had to cx Oct 09 appt. 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 CIPAL ANDROID DEVELOPER documented in this encounter Plan of Treatment Not on file documented as of this encounter Visit Diagnoses Not on filedocumented in this encounter Care Teams Tilt Wall Supervisor Relationship Specialty Start Date End Date Debi Torres NP [address] [facility] [address] [place] [address] PCP - General Family Medicine 07/25/24 Nela Levy MD [address] [facility] [address] [place] [address] Radiation Oncologist Radiation Oncology 05/10/23 documented as of this encounter
--- OUTSIDE RECORDS SUMMARY | 2025-02-11 13:27 | XMS_ITS | Encounter Summary ---
Author Organization [employer] Address [address] [place] [address] Care Team Providers Care Media Coordinator Name Role Phone Brayden Reynolds MD Primary Care Provider [phone] Encounter Details Date Type Department Care Team (Late st Contact Info) Description 09/11/2001 Outpatient Historical [facility] Brayden Reynolds MD [address] [place] [address] Social History Tobacco Use Types Packs/Day Years Used Date Smoking Tobacco: Never Assessed Comments Unknown Sex and Gender Information Value Date Recorded Sex Assigned at Not on file Legal Sex Female 4:20 AM RN DIGESTIVE Gender Identity Not on file Sexual Orientation Not on file documented as of this encounter Plan of Treatment Not on file documented as of this encounter Visit Diagnoses Not on filedocumented in this encounter Care Teams Media Coordinator Relationship Specialty Start Date End Date Brayden Reynolds MD [address] [place] [address] PCP - General 08/09/02 documented as of this encounter
--- OUTSIDE RECORDS SUMMARY | 2025-02-11 13:27 | XMS_ITS | Encounter Summary ---
Author Organization [facility] Address 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
--- OUTSIDE RECORDS SUMMARY | 2025-02-11 13:27 | XMS_ITS | Encounter Summary ---
Author Organization [facility] Address 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
== END 2025-02-11 13:03 | disposition home or self-care (01) ==
LOC: ANHFOHIMG 13:06
PROVIDERS: PCP Internal Medicine; Visit Provider Family Medicine
DX: M85.89 Other specified disorders of bone density and structure, multiple sites (principal); Z78.0 Asymptomatic menopausal state
CPT/HCPCS: 77080